=== PATIENT | male | born 1965 | race Caucasian/White ===

== ENCOUNTER → 2016-11-01 | Outpatient (CLI) | payer OTHER ==
--- NOTE | 2016-11-01 08:39 | RAD ---
Examination: 2 views of the bilateral hips and frontal view of the pelvis History: History of bilateral hip pain. Comparison: None available Findings: The bilateral femoral heads are within the acetabula. Mild joint space loss identified in the bilateral hip joints. There is a minimal bony bump identified in the lateral aspect of the left femoral head neck junction. There is no acute fracture or dislocation identified. Impression: 1. 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 2. Small bony bump identified in the lateral aspect of the left femoral head neck junction. Correlate for impingement. If labral pathology is suspected consider MRI.
== END | disposition home or self-care (01) ==
LOC: RAD 07:56
PROVIDERS: ATTEND Nurse Practitioner
DX: M16.0 Bilateral primary osteoarthritis of hip (principal)
CPT/HCPCS: 73521

== ENCOUNTER → 2017-05-12 | Outpatient (CLI) | payer OTHER ==
[2017-05-12 08:43] LABS: BASO # 0.1 x10^3/uL (0.0-0.2); BASO % 1 % (0-3); EOS # 0.3 x10^3/uL (0.0-0.7); EOS % 5 % (0-3); HEMOGLOBIN 16.2 g/dL (13.0-17.5); LYMPH # 2.1 x10^3/uL (1.0-4.8); LYMPH % 29 % (24-48); MEAN CORPUSCULAR HEMOGLOBIN 31 pg (25-35); MEAN CORPUSCULAR HGB CONC 34 g/dL (31-37); MEAN CORPUSCULAR VOLUME 90 fL (79-100); MONO # 0.7 x10^3/uL (0.0-1.1); MONO % 9 % (0-9); NEUT % 56 % (31-73); PLATELET COUNT 240 x10^3/uL (140-400); RED BLOOD COUNT 5.25 x10^6/uL (4.30-5.70); RED CELL DISTRIBUTION WIDTH 13.9 % (11.5-14.5); WHITE BLOOD COUNT 7.2 x10^3/uL (4.0-11.0)
[2017-05-12 08:57] LABS: ALBUMIN 3.8 g/dL (3.4-5.0); CALCIUM 9.2 mg/dL (8.5-10.1); CREATININE 1.1 mg/dL (0.7-1.3); GFR 69.8; POTASSIUM 3.8 mmol/L (3.5-5.1); TOTAL BILIRUBIN 1.3 mg/dL (0.2-1.0); TOTAL PROTEIN 7.7 g/dL (6.4-8.2)
== END | disposition home or self-care (01) ==
LOC: LAB 08:15
PROVIDERS: ATTEND Family Medicine
DX: E78.5 Hyperlipidemia, unspecified (principal); N40.0 Benign prostatic hyperplasia without lower urinary tract symptoms
CPT/HCPCS: 36415; 80053; 80061; 85025

== ENCOUNTER → 2017-07-30 | Outpatient (CLI) | payer OTHER ==
--- NOTE | 2017-07-30 09:23 | RAD ---
6 views of the lumbar spine 07/30/2017 Indication: Low back pain. Comparison study: None Findings: No evidence of acute fracture or alignment abnormality is identified. Vertebral body heights and disc spaces are grossly maintained. Mild disc space narrowing in the inferior thoracic spine is noted. No spondylolysis or spondylolisthesis is identified. No acute soft tissue changes are seen. Relatively dense calcification of the abdominal aorta is noted for patient age. Impression: No evidence of acute osseous abnormality involving lumbar spine
== END | disposition home or self-care (01) ==
LOC: PMG 08:39
PROVIDERS: ATTEND Physician Assistant Medical
DX: M54.5 Low back pain (principal)
CPT/HCPCS: 72110

== ENCOUNTER → 2018-06-21 | Outpatient (CLI) | payer OTHER ==
--- NOTE | 2018-06-21 14:59 | RAD ---
Right lower extremity venous doppler ultrasound History: Right leg swelling for a couple of weeks Comparison: None Findings: Multiple grayscale, color, and duplex spectral analysis sonographic images were acquired of the right lower extremity veins to evaluate for the presence of DVT. There is normal phasicity. Normal compression, color-flow, and augmentation is demonstrated from the right common femoral to the popliteal veins. There is normal color flow of the proximal greater saphenous and profunda femoris veins. There is normal color flow of segments of the calf veins. There is nonspecific fluid collection of the right posterior calf region about 4 cm x 1 cm x 3.4 cm in size in the muscle. Impression: 1. There is no evidence of deep venous thrombosis from the right common femoral to popliteal veins. 2. There is nonspecific intramuscular fluid collection of the right posterior calf. Electronically signed by: Salty Martinez MD (06/21/2018 2:55 PM) [id number]
== END | disposition home or self-care (01) ==
LOC: US 12:24
PROVIDERS: ATTEND Physician Assistant Medical
DX: M79.604 Pain in right leg (principal)
CPT/HCPCS: 93971